=== PATIENT | female | born 1960 | race African-American/Black ===

== ENCOUNTER 2023-08-09 15:26 | Emergency (ER) | payer BC ==
[~2023-08-09] VITALS: Ht 167.6 cm; Wt 90.0 kg
[2023-08-09 15:40] VITALS: O2SAT 99
[2023-08-09 16:28] LABS: BASOPHILS % 1.3 % (0.0-2.0); EOSINOPHILS % 2.6 % (0.0-5.0); HEMATOCRIT. 39.2 % (36.0-48.0); HEMOGLOBIN. 12.9 g/dL (12.0-16.0); LYMPHOCYTES % 41.4 % (20.0-50.0); MEAN CORPUSCULAR HEMOGLOBIN 28.3 pg (28.0-32.0); MEAN CORPUSCULAR VOLUME 85.8 fL (81.0-99.0); MEAN PLATELET VOLUME 7.9 fl (7.4-10.4); MONOCYTES % 6.7 % (2.0-8.0); PLATELET 292 x1000/uL (130-400); RED BLOOD CELL COUNT 4.57 mill/uL (4.2-5.4); RED CELL DISTRIBUTION WIDTH 13.3 % (11.6-14.6); WHITE BLOOD COUNT 8.1 x1000/uL (4.5-11.0)
[2023-08-09 16:54] LABS: ALANINE AMINOTRANSFERASE 20 IU/L (10-49); ALBUMIN 3.7 g/dL (3.2-4.8); ASPARTATE AMINOTRANSFERASE 26 IU/L (<34); BILIRUBIN TOTAL 0.3 mg/dL (0.1-1.0); CARBON DIOXIDE 26 mEq/L (21-32); CHLORIDE 110 mEq/L (98-107); CREATININE 0.7 mg/dL (0.6-1.0); GLUCOSE 98 mg/dL (70-105); POTASSIUM 3.6 mEq/L (3.5-5.1); PROTEIN TOTAL 7.1 g/dL (6.0-8.3); SODIUM 143 mEq/L (136-145); TROPONIN I HIGH SENSITIVITY 4 ng/L (3.0-34); UREA NITROGEN BLOOD 9 mg/dL (9-23)
[2023-08-09 16:57] LABS: ETHANOL BLOOD < 10 mg/dL (<10)
[2023-08-09 17:51] VITALS: BP 101/79; PULSE 102; RESP 18; TEMP 97.8
== END 2023-08-09 18:02 | disposition home or self-care (01) ==
LOC: ER 15:26
DX: Z00.00 Encounter for general adult medical examination without abnormal findings (principal); I10 Essential (primary) hypertension; Z86.39 Personal history of other endocrine, nutritional and metabolic disease
CPT/HCPCS: 80053; 80320; 85025; 84484; 36415; 70450; 93005; 99285; Z7610 ×2; G0480